=== PATIENT | male | born 1995 | race Caucasian/White ===

== ENCOUNTER 2023-01-07 00:25 | Emergency (ER) | payer SELFPAY ==
[2023-01-07] MEDS ORDERED: Octyl 2-Cyanoacrylate 1 g/1 mL 1 APPLIC PEN TOP ONE (00:51)
[2023-01-07] MEDS: Octyl 2-Cyanoacrylate 1 g/1 mL 1 APPLIC PEN ONE ×2 (00:56)
== END 2023-01-07 01:07 ==
LOC: MW.ED 00:25
DX: S01.81XA Laceration without foreign body of other part of head, initial encounter (principal); Z02.89 Encounter for other administrative examinations
CPT/HCPCS: 12011; 99284; A9270; 99282